=== PATIENT | female | born 1970 ===

== ENCOUNTER 2024-08-18 07:09 | Inpatient (IN) | payer OTHER ==
[2024-08-14 14:43] VITALS: BP 121/82
[~2024-08-18] VITALS: Ht 154.9 cm; Wt 63.0 kg
[2024-08-18] MEDS ORDERED: DEXAMETHASONE SODIUM PHOSPHATE 4 MG/ML VIAL IV ONE (13:00)
[2024-08-18] MEDS ORDERED: ONDANSETRON HCL 2 MG/ML VIAL IV PRN (15:45)
[2024-08-18] MEDS ORDERED: ENALAPRILAT DIHYDRATE 1.25 MG/ML VIAL IV PRN (15:45)
[2024-08-18] MEDS ORDERED: CYCLOBENZAPRINE HCL 5 MG TABLET PO SCH (17:00)
[2024-08-18] MEDS ORDERED: ACETAMINOPHEN 500 MG GEL..CAP PO SCH (17:00)
[2024-08-18] MEDS ORDERED: TRAMADOL HCL 50 MG TABLET PO SCH (17:00)
[2024-08-18] MEDS ORDERED: PANTOPRAZOLE SODIUM 40 MG/VIAL VIAL IV PUSH SCH (21:00)
[2024-08-19 00:19] VITALS: BP 118/59; O2SAT 100
[2024-08-19 08:21] VITALS: BP 115/61; O2SAT 99
== END 2024-08-19 15:23 | disposition home or self-care (01) | DRG 627 ==
LOC: CIR.AMB 07:09 → SURH 07:15 → EDSTATUS 07:15 → CIR.AMB 07:15 → O/R 17:08 → SURG 17:12
PROVIDERS: ADMIT Surgery; ATTEND Surgery
PROC: 07T10ZZ Resection of Right Neck Lymphatic, Open Approach (ICD-10-PCS; 2024-08-18)
PROC: 0GTH0ZZ Resection of Right Thyroid Gland Lobe, Open Approach (ICD-10-PCS; principal; 2024-08-18 12:00)
DX: E04.2 Nontoxic multinodular goiter (principal); E06.3 Autoimmune thyroiditis; Z20.822 Contact with and (suspected) exposure to COVID-19